=== PATIENT | male | born 1965 | race African-American/Black ===

== ENCOUNTER 2024-11-08 12:56 | Emergency (ER) | payer OTHER, SELFPAY ==
--- NOTE | 2024-11-08 12:56 | ED_ITS ---
HPI - Chest Pain General Chief Complaint: Abdominal Pain Stated Complaint: Acid Reflux Time Seen by Provider: 11/08/24 12:56 Source: patient Mode of arrival: ambulatory Limitations: no limitations History of Present Illness HPI narrative: Damon is a 59 year old male patient presenting to the clinic today with complaints possible acid reflux. He reports he is having mid epigastric pain with burning sensation. States he is out of town for work and left his Nexium at home. He has had a history of heart attack in the past. Denies any shortness of breath or chest pain other than the burning sensation in the mid abdomen with a bad taste in his mouth. States this feels nothing like as when he had his heart attack in the past. History of AFib. Related Data Home Medications ?Medication ?Instructions ?Recorded ?Confirmed ?Last Taken ?Type esomeprazole magnesium 40 mg mg 11/08/24 Unknown History granules delayed release for susp Allergies Allergy/AdvReac Type Severity Reaction Status Date / Time No Known Allergies Allergy Verified 11/08/24 12:58 Review of Systems Review of Systems: Pertinent positives per HPI. Patient denies any fever, chills, rash, headache, visual changes, dizziness, cough, runny nose, sore throat, shortness of breath, palpitations, nausea, vomiting, diarrhea, constipation, abdominal pain, or any urinary issues. PMFSH Comments At the time of my signature, I reviewed and agree with the nursing past medical, surgical, social, and family history. There is no relevant family history pertinent to the patient complaint. Exam Narrative: General: Well-developed, well nourished, in no apparent distress Head: Normocephalic, atraumatic. Cardio: Regular rate and rhythm, s1 and s2 normal, no murmur appreciated. Resp: Clear to auscultation bilaterally, no rhonchi, rales, wheezing or rubs. Abdomen: Soft, pliable, bowel sounds present in all quadrants, non-tender to palpation, no organomegly, no CVAT tenderness. Extremities: No deformity, no edema, no cyanosis, capillary refill less than 2 seconds, peripheral pulses palpable and strong. Integumentary: [place], warm, and dry, intact without lesion, no rashes. Course Course Emergency Course: Portions of this record may have been created with voice recognition software. Level of Care: Express Care Visit Vital Signs Vital signs: Vital Signs Temperature 37.0 C 11/08/24 13:12 Pulse Rate 64 11/08/24 13:12 Respiratory Rate 20 11/08/24 13:12 Blood Pressure 130/74 11/08/24 13:12 Pulse Oximetry 100 11/08/24 13:12 Oxygen Delivery Room Air 11/08/24 13:12 Temperature 37.0 C 11/08/24 13:12 Pulse Rate 64 11/08/24 13:12 Respiratory Rate 20 11/08/24 13:12 Blood Pressure 130/74 11/08/24 13:12 Pulse Oximetry 100 11/08/24 13:12 Oxygen Delivery Room Air 11/08/24 13:12 Vital signs reviewed MDM - Chest Pain MDM Narrative Medical decision making narrative: At the time of visit patient is resting comfortably on the exam table. Patient appears to be nontoxic. EKG:EKG shows atrial fibrillation with unifocal PVCs, heart rate 66 beats per minute. Nonspecific T-wave abnormality. No ST elevation or depression. Medications: 15 mL of viscous lidocaine 2% and 30 mL of Maalox p.o. given in the clinic today Plan: I suspect patient has GERD. Viscous lidocaine and Maalox improved patient's symptoms. Will send in prescription for Nexium to the pharmacy. Supportive measures were discussed with the patient and they voiced understanding discharge instructions and agrees to treatment plan. Return precautions reviewed Differential Diagnosis Differential diagnosis: Likely stable angina, unstable angina pectoris, atypical chest pain, st elevation myocardial infarction, costochondritis, chest pain, biliary colic and other (GERD) ECG Data EKG #1: Attestation: I personally reviewed and interpreted this ECG as follows: ECG completion date: 11/08/24 ECG completion time: 13:28 Prior ECG tracings: not available for review Interpretation: EKG shows atrial fibrillation with unifocal PVCs, heart rate 66 beats per minute. Nonspecific T-wave abnormality. No ST elevation or depression. QRS duration 89 milliseconds, QT-QTC is 411-424 milliseconds, P-R-T axis is 43 and 11 Discharge Plan Discharge Clinical Impression: GERD (gastroesophageal reflux disease) Qualifiers: Esophagitis presence: esophagitis presence not specified Qualified Code(s): K21.9 - Gastro-esophageal reflux disease without esophagitis Patient Disposition: Home Condition: Stable Instructions: GERD (Gastroesophageal Reflux Disease) (ED) Additional Instructions: EKG shows atrial fibrillation with PVCs and nonspecific T-wave abnormality. GI cocktail was given in the clinic today Take Nexium as prescribed Increase fluids and stay well hydrated Avoid eating spicy or fatty foods, chocolate, or drinking caffeine. Avoid foods that cause you to feel bloated. Stop smoking Lose weight/exercise Stay upright for at least 30 minutes after eating. May use tums for immediate relief Follow up with your PCP in 3-5 days if symptoms persist. Patient Language: [place]ian Prescriptions: New esomeprazole magnesium 40 mg capsule,delayed release(DR/EC) 40 mg PO DAILY 30 Days Qty: 30 0RF No Action esomeprazole magnesium [address] for susp in packet Follow-up/Referrals: UNKNOWN,DOCTOR [Non-Staff] - Stand Alone Forms: Work/School Release IP Time of Disposition: 13:40 Quality NIHSS Nursing Documentation ED NIHSS nursing documentation: reviewed/agree
[2024-11-08 13:12] VITALS: BP 130/74; PULSE 64; RESP 20; TEMP 37; O2SAT 100
--- NOTE | 2024-11-08 13:19 | ECG_ITS ---
Test Date: 2024-11-08 13:28:26 Measurements Intervals [place] Rate: 66 P: 0 [place]: 0 QRS: 43 QRSD: 89 T: 11 QT: 411 QTc: 432 Interpretive Statements SINUS RHYTHM WITH ATRIAL AND VENTRICULAR PREMATURE COMPLEXES NONSPECIFIC T-WAVE ABNORMALITY- INFERIOR LEADS BASELINE ARTIFACT- I, III, AVL, AVF, V5 BORDERLINE ECG No previous ECG available for comparison Electronically Signed On 11-08-2024 15:25:59 CDT by Alexys Palomo D.O.
[2024-11-08] MEDS: MAG HYDROX/AL HYDROX/SIMETH 30 ML UDC PO (13:24)
[2024-11-08] MEDS: LIDOCAINE 2% VISC SOLN 15 ML UDC PO (13:24)
== END 2024-11-08 13:50 | disposition home or self-care (01) ==
PROVIDERS: Emergency Provider Nurse Practitioner Family
DX: K21.9 Gastro-esophageal reflux disease without esophagitis (principal); I48.91 Unspecified atrial fibrillation; I25.2 Old myocardial infarction; I10 Essential (primary) hypertension; E78.00 Pure hypercholesterolemia, unspecified; Z95.5 Presence of coronary angioplasty implant and graft
CPT/HCPCS: 93005; 99213; A9270; G0463